=== PATIENT | male | born 1975 | race Caucasian/White ===

== ENCOUNTER 2023-11-18 10:24 | Inpatient (IN) | payer BC ==
[2023-11-18 10:54] VITALS: BMI 20.9
[2023-11-18] MEDS ORDERED: MAG HYDROX/AL HYDROX/SIMETH 30 ML UNIT-DOSE CUP PO PRN (11:07)
[2023-11-18] MEDS ORDERED: guaiFENesin 600 MG TABLET.ER (FP) PO PRN (11:07)
[2023-11-18] MEDS ORDERED: BENZONATATE 200 MG CAPSULE PO PRN (11:07)
[2023-11-18] MEDS ORDERED: P-EPHED 60MG/TRIPROLIDI 2.5MG TABLET PO PRN (11:07)
[2023-11-18] MEDS ORDERED: NALOXONE HCL 0.4 MG/ML VIAL IM PRN (11:07)
[2023-11-18] MEDS ORDERED: MAGNESIUM HYDROX 2400MG/30ML ORAL SUSPENSION 30 ML CUP PO PRN (11:07)
[2023-11-18] MEDS ORDERED: LOPERAMIDE HCL 2 MG CAPSULE PO PRN (11:07)
[2023-11-18] MEDS ORDERED: NALOXONE (NARCAN) HCL 4 MG/0.1 ML SPRAY NS PRN (11:07)
[2023-11-18] MEDS ORDERED: BENZOCAINE/MENTHOL (CHLORASEPTIC ) LOZENGE MM PRN (11:07)
[2023-11-18] MEDS ORDERED: POLYETHYLENE GLYCOL (HEALTHYLAX) 3350 17 GM PACKET PO PRN (11:07)
[2023-11-18] MEDS ORDERED: cloNIDine HCL 0.1 MG TABLET PO PRN (11:11)
[2023-11-18] MEDS ORDERED: methaDONE HCL 10 MG TABLET (FOR DETOX USE ONLY) ONE (12:18)
[2023-11-18] MEDS: methaDONE HCL 10 MG TABLET (FOR DETOX USE ONLY) PO ONE (12:21)
[2023-11-18] MEDS: CLOPIDOGREL BISULFATE 75 MG TABLET (FP) PO SCH (13:35)
[2023-11-18] MEDS: EMPAGLIFLOZIN (JARDIANCE) 25 MG TABLET PO SCH (13:36)
[2023-11-18] MEDS: FERROUS SO4 325 MG TABLET (FP) PO SCH (13:37)
[2023-11-18] MEDS: PANTOPRAZOLE 40 MG TABLET PO SCH (13:37)
[2023-11-18] MEDS: SACUBITRIL/VALSARTAN 24 MG-26 MG TABLET PO SCH (13:54)
[2023-11-18] MEDS: METHOCARBAMOL 500 MG TABLET PO PRN (15:46)
[2023-11-18] MEDS: INSULIN ASPART SLIDING SCALE (NOVOLOG) 1 VIAL SQ SCH (17:03)
[2023-11-18] MEDS: FUROSEMIDE 20 MG TABLET (FP) PO SCH (17:05)
[2023-11-18] MEDS: GABAPENTIN 400 MG CAPSULE PO SCH (17:06)
[2023-11-18] MEDS: THIAMINE 100 MG TABLET PO SCH (21:53)
[2023-11-18] MEDS: ATORVASTATIN CA 80 MG TABLET (FP) PO SCH (21:54)
[2023-11-18] MEDS: INSULIN (LEVEMIR) 100 UNITS/ML UNITS SQ SCH (21:57)
[2023-11-18] MEDS: MELATONIN 5 MG TABLETS PO SCH (21:59)
[2023-11-19] MEDS: GABAPENTIN 400 MG CAPSULE PO SCH (05:40)
[2023-11-19] MEDS: INSULIN ASPART SLIDING SCALE (NOVOLOG) 1 VIAL SQ SCH (06:12)
[2023-11-19] MEDS ORDERED: methaDONE HCL 10 MG TABLET (FOR DETOX USE ONLY) PO ONE (10:00)
[2023-11-19] MEDS: CHOLECALCIFEROL (VIT D3) 1,000 UNIT (25 MCG) TABLET PO SCH (10:35)
[2023-11-19] MEDS: PRENATAL VITAMINS W/ FOLIC ACID TABLET (FP) PO SCH (10:37)
[2023-11-19] MEDS: MAGNESIUM OXIDE 400 MG TABLET (FP) PO SCH (10:41)
[2023-11-20] MEDS: DICYCLOMINE HCL 10 MG CAPSULE PO PRN (01:48)
[2023-11-20] MEDS: methaDONE HCL 10 MG TABLET (FOR DETOX USE ONLY) PO ONE (10:49)
[2023-11-20] MEDS: ONDANSETRON *ODT* 4 MG TABLET SL PRN (17:52)
[2023-11-20] MEDS: ACETAMINOPHEN 325 MG TABLET (FP) PO PRN (18:57)
[2023-11-20] MEDS: cloNIDine HCL 0.1 MG TABLET PO PRN (19:54)
[2023-11-20] MEDS: hydrOXYzine PAMOATE 25 MG CAPSULE (FP) PO PRN (19:54)
[2023-11-21 06:44] VITALS: RESP 16
[2023-11-21 09:55] VITALS: BP 150/80; PULSE 59; TEMP 97.5
== END 2023-11-21 10:55 | disposition home or self-care (01) | DRG 773 ==
LOC: YASAS 10:24 → Y6N 12:54
PROVIDERS: ADMIT Allergy & Immunology; ATTEND Family Medicine Addiction Medicine
PROC: HZ2ZZZZ Detoxification Services for Substance Abuse Treatment (ICD-10-PCS; principal; 2023-11-18)
DX: F11.23 Opioid dependence with withdrawal (principal); F12.20 Cannabis dependence, uncomplicated; G62.9 Polyneuropathy, unspecified; I25.10 Atherosclerotic heart disease of native coronary artery without angina pectoris; I11.0 Hypertensive heart disease with heart failure; I50.9 Heart failure, unspecified; Z95.1 Presence of aortocoronary bypass graft; E78.5 Hyperlipidemia, unspecified; E11.9 Type 2 diabetes mellitus without complications; Z79.4 Long term (current) use of insulin; Z88.2 Allergy status to sulfonamides; Z79.84 Long term (current) use of oral hypoglycemic drugs
CPT/HCPCS: 80305; 80307; 82962; 93005; 93010; Q0162

== ENCOUNTER 2023-12-19 11:32 | Inpatient (IN) | payer BC ==
[2023-12-19 11:59] VITALS: BMI 21.2
[2023-12-19] MEDS ORDERED: BISMUTH SUBSALICYLATE 524 MG/30 ML PO PRN (12:18)
[2023-12-19] MEDS ORDERED: LOPERAMIDE HCL 2 MG CAPSULE PO PRN (12:18)
[2023-12-19] MEDS ORDERED: IBUPROFEN 600 MG TABLET (FP) PO PRN (12:18)
[2023-12-19] MEDS ORDERED: BENZOCAINE/MENTHOL (CHLORASEPTIC ) LOZENGE MM PRN (12:18)
[2023-12-19] MEDS ORDERED: NALOXONE (NARCAN) HCL 4 MG/0.1 ML SPRAY NS PRN (12:18)
[2023-12-19] MEDS ORDERED: MAGNESIUM HYDROX 2400MG/30ML ORAL SUSPENSION 30 ML CUP PO PRN (12:18)
[2023-12-19] MEDS ORDERED: BUPRENORPHINE HCL 150 MCG, BUPRENORPHINE HCL 75 MCG BC PRN (12:18)
[2023-12-19] MEDS ORDERED: ONDANSETRON *ODT* 4 MG TABLET SL PRN (12:18)
[2023-12-19] MEDS ORDERED: IBUPROFEN 400 MG TABLET (FP) PO PRN (12:18)
[2023-12-19] MEDS ORDERED: MAG HYDROX/AL HYDROX/SIMETH 30 ML UNIT-DOSE CUP PO PRN (12:18)
[2023-12-19] MEDS ORDERED: POLYETHYLENE GLYCOL (HEALTHYLAX) 3350 17 GM PACKET PO PRN (12:18)
[2023-12-19] MEDS ORDERED: NALOXONE (NYS OPIOID OVERDOSE PROGRAM) 4 MG/0.1 ML SPRAY NS PRN (12:18)
[2023-12-19] MEDS: SACUBITRIL/VALSARTAN 24 MG-26 MG TABLET PO SCH (13:36)
[2023-12-19] MEDS ORDERED: BUPRENORPHINE HCL 75 MCG FILM BC ONE (13:42)
[2023-12-19] MEDS ORDERED: BUPRENORPHINE HCL 150 MCG FILM BC ONE (13:42)
[2023-12-19] MEDS: BUPRENORPHINE HCL 150 MCG, BUPRENORPHINE HCL 75 MCG BC ONE (13:44)
[2023-12-19] MEDS: cloNIDine HCL 0.1 MG TABLET PO ONE (13:49)
[2023-12-19] MEDS: CLOPIDOGREL BISULFATE 75 MG TABLET (FP) PO SCH (14:43)
[2023-12-19] MEDS: FERROUS SO4 325 MG TABLET (FP) PO SCH (14:49)
[2023-12-19] MEDS: GABAPENTIN 400 MG CAPSULE PO SCH (14:49)
[2023-12-19] MEDS: INSULIN ASPART SLIDING SCALE (NOVOLOG) 1 VIAL SQ SCH (16:53)
[2023-12-19] MEDS: cloNIDine HCL 0.1 MG TABLET PO PRN (18:59)
[2023-12-19] MEDS: BENZONATATE 200 MG CAPSULE PO PRN (19:03)
[2023-12-19] MEDS: ACETAMINOPHEN 325 MG TABLET (FP) PO PRN (19:41)
[2023-12-19] MEDS: ATORVASTATIN CA 80 MG TABLET (FP) PO SCH (22:09)
[2023-12-19] MEDS: THIAMINE 100 MG TABLET PO SCH (22:09)
[2023-12-19] MEDS: PANTOPRAZOLE 40 MG TABLET PO SCH (22:09)
[2023-12-19] MEDS: MELATONIN 5 MG TABLETS PO SCH (22:11)
[2023-12-19] MEDS: INSULIN (LEVEMIR) 100 UNITS/ML UNITS SQ SCH (22:15)
[2023-12-19] MEDS: diazePAM 5 MG TABLET PO PRN (23:06)
[2023-12-20] MEDS ORDERED: BUPRENORPHINE HCL 150 MCG, BUPRENORPHINE HCL 75 MCG BC PRN
[2023-12-20] MEDS: guaiFENesin 600 MG TABLET.ER (FP) PO PRN (02:02)
[2023-12-20] MEDS: BUPRENORPHINE HCL 150 MCG, BUPRENORPHINE HCL 75 MCG BC SCH (05:50)
[2023-12-20] MEDS: PRENATAL VITAMINS W/ FOLIC ACID TABLET (FP) PO SCH (10:58)
[2023-12-20] MEDS: CHOLECALCIFEROL (VIT D3) 1,000 UNIT (25 MCG) TABLET PO SCH (11:00)
[2023-12-20 12:40] LABS: HEMATOCRIT 35.4 % (35.4-49); HEMOGLOBIN 10.9 GM/dL (11.7-16.9); MCH 22.2 pg (25.7-33.7); MCHC 30.8 g/dl (32.0-35.9); MEAN CELL VOLUME 71.9 fl (80-96); MEAN PLT VOLUME 8.8 fl (7.5-11.1); PLATELET COUNT 687 10^3/uL (134-434); RBC 4.93 M/mm3 (4.00-5.60); RDW 25.4 % (11.9-15.9); WHITE BLOOD COUNT 12.3 K/mm3 (4.0-10.0)
[2023-12-20 13:50] LABS: CHLORIDE 112 mmol/L (98-107); POTASSIUM 5.2 mmol/L (3.5-5.1); SODIUM 142 mmol/L (136-145)
[2023-12-20 13:55] LABS: ANION GAP 3 mmol/L (4-13); BLOOD UREA NITROGEN 31.3 mg/dL (7-18); CALCIUM 10.3 mg/dL (8.5-10.1); CO2 27 mmol/L (21-32); GLUCOSE,RANDOM 137 mg/dL (74-106)
[2023-12-20 13:57] LABS: CREATININE 1.1 mg/dL (0.55-1.3); SGOT/AST 22 U/L (15-37)
[2023-12-20 14:00] LABS: ALK PHOS 244 U/L (45-117); BILIRUBIN,TOTAL 0.4 mg/dL (0.2-1); SGPT/ALT 28 U/L (13-61); TOT PROT 6.3 g/dl (6.4-8.2)
[2023-12-20] MEDS ORDERED: INSULIN (NOVOLOG) ASPART 100 UNITS/ML 10ML VIAL ONE (16:46)
[2023-12-20] MEDS: hydrOXYzine PAMOATE 25 MG CAPSULE (FP) PO PRN (23:25)
[2023-12-21] MEDS: DICYCLOMINE HCL 10 MG CAPSULE PO PRN (02:08)
[2023-12-21] MEDS: BUPRENORPHINE HCL 450 MCG FILM BC SCH (05:44)
[2023-12-21 13:06] VITALS: PULSE 73; RESP 16
[2023-12-21] MEDS: ALBUTEROL SO4 0.083% IH SOL 2.5 MG/3 ML VIAL.NEB. NEB ONE (14:50)
[2023-12-21 15:02] LABS: HEMATOCRIT 38.2 % (35.4-49); HEMOGLOBIN 11.7 GM/dL (11.7-16.9); MCH 21.9 pg (25.7-33.7); MCHC 30.5 g/dl (32.0-35.9); MEAN CELL VOLUME 71.9 fl (80-96); MEAN PLT VOLUME 8.8 fl (7.5-11.1); PLATELET COUNT 778 10^3/uL (134-434); RBC 5.32 M/mm3 (4.00-5.60); RDW 25.3 % (11.9-15.9); WHITE BLOOD COUNT 11.5 K/mm3 (4.0-10.0)
[2023-12-21 15:03] LABS: ADD RBC MORPHOLOGY YES
[2023-12-21 15:26] LABS: ANISOCYTOSIS 3+; MACROCYTOSIS 0; TARGET CELLS 1+
[2023-12-21] MEDS: METHOCARBAMOL 500 MG TABLET PO PRN (15:34)
[2023-12-21 15:37] LABS: POTASSIUM 4.9 mmol/L (3.5-5.1)
[2023-12-21 15:42] LABS: CALCIUM 10.5 mg/dL (8.5-10.1)
[2023-12-21 15:47] LABS: BILIRUBIN,TOTAL 0.6 mg/dL (0.2-1); TOT PROT 6.1 g/dl (6.4-8.2)
[2023-12-21] MEDS ORDERED: INSULIN (NOVOLOG) ASPART 100 UNITS/ML 10ML VIAL ONE (17:15)
[2023-12-21 18:11] VITALS: BP 140/78; TEMP 97.9
[2023-12-22] MEDS ORDERED: BUPRENORPHINE/NALOXONE 4 MG/1 MG FILM PACKET SL SCH (06:00)
[2023-12-23] MEDS ORDERED: BUPRENORPHINE/NALOXONE 8 MG/2 MG FILM PACKET SL ONE (06:00)
== END 2023-12-21 23:59 | disposition short-term general hospital (02) | DRG 773 ==
LOC: YASAS 11:32 → Y6N 12:58
PROVIDERS: ADMIT Allergy & Immunology; ATTEND Surgery
PROC: HZ2ZZZZ Detoxification Services for Substance Abuse Treatment (ICD-10-PCS; principal; 2023-12-19)
DX: F11.23 Opioid dependence with withdrawal (principal); G62.9 Polyneuropathy, unspecified; I25.10 Atherosclerotic heart disease of native coronary artery without angina pectoris; I11.0 Hypertensive heart disease with heart failure; Z95.1 Presence of aortocoronary bypass graft; E78.5 Hyperlipidemia, unspecified; E11.9 Type 2 diabetes mellitus without complications; Z79.84 Long term (current) use of oral hypoglycemic drugs; Z85.71 Personal history of Hodgkin lymphoma; Z88.2 Allergy status to sulfonamides
CPT/HCPCS: 0241U-QW; 36415; 71046-TC-FY; 80053; 80305; 80307; 82962; 83036; 85025; 85027; 86780; 93005; 93010

== ENCOUNTER 2023-12-21 20:07 | Inpatient (IN) | payer BC ==
[2023-12-21 20:13] VITALS: BMI 20.7
[2023-12-21] MEDS ORDERED: CEFTRIAXONE 1 GM/50 ML BAG ONE (21:53)
[2023-12-21] MEDS: CEFTRIAXONE 1 GM in DEXTROSE 5%-WATER - 100 ML IVPB ONE (22:05)
[2023-12-21 22:13] LABS: HEMATOCRIT 41.6 % (35.4-49); HEMOGLOBIN 13.2 GM/dL (11.7-16.9); MCH 22.5 pg (25.7-33.7); MCHC 31.8 g/dl (32.0-35.9); MEAN CELL VOLUME 70.9 fl (80-96); MEAN PLT VOLUME 8.9 fl (7.5-11.1); PLATELET COUNT 882 10^3/uL (134-434); RBC 5.87 M/mm3 (4.00-5.60); RDW 25.9 % (11.9-15.9); WHITE BLOOD COUNT 13.5 K/mm3 (4.0-10.0)
[2023-12-21 22:19] LABS: ADD RBC MORPHOLOGY YES
[2023-12-21 22:30] LABS: POTASSIUM 5.3 mmol/L (3.5-5.1)
[2023-12-21 22:32] LABS: ALBUMIN 3.1 g/dl (3.4-5.0); CALCIUM 10.4 mg/dL (8.5-10.1)
[2023-12-21 22:33] LABS: BLOOD UREA NITROGEN 28.3 mg/dL (7-18)
[2023-12-21] MEDS ORDERED: AZITHROMYCIN IVPB 500 MG/250 ML BAG IVPB ONE (22:34)
[2023-12-21 22:36] LABS: CREATININE 1.2 mg/dL (0.55-1.3)
[2023-12-21 22:37] LABS: BILIRUBIN,TOTAL 0.7 mg/dL (0.2-1); TOT PROT 6.8 g/dl (6.4-8.2)
[2023-12-21] MEDS: AZITHROMYCIN IVPB 500 MG in DEXTROSE 5%-WATER - 250 ML IVPB ONE (22:42)
[2023-12-21 23:10] LABS: ANISOCYTOSIS 3+; MACROCYTOSIS 2+; TARGET CELLS 2+
[2023-12-21] MEDS ORDERED: ONDANSETRON 4 MG/2 ML VIAL ONE (23:25)
[2023-12-21] MEDS: ONDANSETRON 4 MG/2 ML VIAL IVPUSH ONE (23:37)
[2023-12-22] MEDS ORDERED: ACETAMINOPHEN INJECTION 100 ML ONE (02:22)
[2023-12-22] MEDS: GABAPENTIN 400 MG CAPSULE PO SCH ×2 (02:29→08:11)
[2023-12-22] MEDS: ACETAMINOPHEN 1000 MG/100 ML BAG IVPB ONE (02:29)
[2023-12-22 07:41] LABS: HEMATOCRIT 40.5 % (35.4-49); HEMOGLOBIN 12.6 GM/dL (11.7-16.9); MCH 22.3 pg (25.7-33.7); PLATELET COUNT 787 10^3/uL (134-434); RBC 5.63 M/mm3 (4.00-5.60); RDW 25.7 % (11.9-15.9); WHITE BLOOD COUNT 14.3 K/mm3 (4.0-10.0)
[2023-12-22] MEDS ORDERED: FUROSEMIDE 20 MG TABLET (FP) ONE (07:52)
[2023-12-22] MEDS ORDERED: GABAPENTIN 400 MG CAPSULE ONE ×3 (07:53→17:50)
[2023-12-22] MEDS ORDERED: BUPRENORPHINE/NALOXONE 2 MG/0.5 MG FILM PACKET SL SCH (07:55)
[2023-12-22] MEDS ORDERED: ONDANSETRON 4 MG/2 ML VIAL IVPUSH PRN (07:57)
[2023-12-22] MEDS ORDERED: BUPRENORPHINE/NALOXONE 2 MG/0.5 MG FILM PACKET ONE ×2 (07:59→17:51)
[2023-12-22 08:08] LABS: POTASSIUM 5.3 mmol/L (3.5-5.1)
[2023-12-22] MEDS: FUROSEMIDE 20 MG TABLET (FP) PO SCH (08:11)
[2023-12-22] MEDS: BUPRENORPHINE/NALOXONE 2 MG/0.5 MG FILM PACKET SL SCH (08:12)
[2023-12-22 08:22] LABS: BLOOD UREA NITROGEN 34.3 mg/dL (7-18); CALCIUM 10.5 mg/dL (8.5-10.1)
[2023-12-22 08:23] LABS: MAGNESIUM 1.8 mg/dL (1.8-2.4)
[2023-12-22 08:26] LABS: CREATININE 1.5 mg/dL (0.55-1.3); PHOSPHOROUS 4.1 mg/dL (2.5-4.9)
[2023-12-22] MEDS: INSULIN (LEVEMIR) 100 UNITS/ML UNITS SQ SCH (09:19)
[2023-12-22] MEDS: BUPRENORPHINE/NALOXONE 4 MG/1 MG FILM PACKET SL SCH (09:20)
[2023-12-22] MEDS ORDERED: SACUBITRIL/VALSARTAN 24 MG-26 MG TABLET ONE (09:25)
[2023-12-22] MEDS ORDERED: PANTOPRAZOLE 40 MG TABLET PO ONE (09:26)
[2023-12-22] MEDS ORDERED: CLOPIDOGREL BISULFATE 75 MG TABLET (FP) ONE (09:26)
[2023-12-22 09:29] LABS: EPI CELLS 3 /uL (0-25.1); HYALINE CASTS 2 /uL (0-3.1); URINE APPEARANCE CLEAR; URINE BACTERIA 3 /uL (0-1359); URINE BILIRUBIN NEGATIVE (NEGATIVE); URINE COLOR DK YELLOW; URINE GLUCOSE (UA) NEGATIVE (NEGATIVE); URINE KETONE TRACE (NEGATIVE); URINE LEUK ESTERASE NEGATIVE (NEGATIVE); URINE NITRITE NEGATIVE (NEGATIVE); URINE PROTEIN 2+ (NEGATIVE); URINE RBC 24 /uL (0-23.9); URINE UROBILINOGEN 0.2 mg/dL (0.2-1.0); URINE WBC 13 /uL (0-25.8)
[2023-12-22] MEDS: SACUBITRIL/VALSARTAN 24 MG-26 MG TABLET PO SCH (09:57)
[2023-12-22] MEDS: PANTOPRAZOLE 40 MG TABLET PO SCH (09:57)
[2023-12-22] MEDS: CLOPIDOGREL BISULFATE 75 MG TABLET (FP) PO SCH (09:57)
[2023-12-22] MEDS: ENOXAPARIN NA (PORCINE) 40 MG/0.4 ML DISP.SYRIN SQ SCH (10:00)
[2023-12-22] MEDS ORDERED: ACETAMINOPHEN 325 MG TABLET (FP) ONE (11:32)
[2023-12-22] MEDS: ACETAMINOPHEN 325 MG TABLET (FP) PO PRN (11:37)
[2023-12-22 13:31] LABS: HIV INTERPRETATION NEGATIVE (NEGATIVE)
[2023-12-22] MEDS ORDERED: FUROSEMIDE 40 MG/4 ML INJECTABLE VIAL ONE (14:24)
[2023-12-22] MEDS: FUROSEMIDE 40 MG/4 ML INJECTABLE VIAL IVPUSH ONE (14:36)
[2023-12-22] MEDS: INSULIN ASPART SLIDING SCALE (NOVOLOG) 1 VIAL SQ SCH ×2 (18:01→19:46)
[2023-12-22] MEDS ORDERED: cefTRIAXone SODIUM 1 GM VIAL ONE (22:56)
[2023-12-22] MEDS ORDERED: AZITHROMYCIN IVPB 500 MG/250 ML BAG IVPB ONE (22:57)
[2023-12-22] MEDS: CEFTRIAXONE 1 GM in DEXTROSE 5%-WATER - 50 ML IVPB SCH (23:39)
[2023-12-22] MEDS: ATORVASTATIN CA 80 MG TABLET (FP) PO SCH (23:40)
[2023-12-23] MEDS: AZITHROMYCIN IVPB 500 MG/250 ML BAG IVPB SCH (00:49)
[2023-12-23] MEDS: FUROSEMIDE 40 MG/4 ML INJECTABLE VIAL IVPUSH ONE (03:46)
[2023-12-23] MEDS: FUROSEMIDE 40 MG/4 ML INJECTABLE VIAL IVPUSH SCH (06:06)
[2023-12-23] MEDS: BUPRENORPHINE/NALOXONE 8 MG/2 MG FILM PACKET SL ONE (06:14)
[2023-12-23 12:01] LABS: BASO % 0.8 % (0-2.0); EOS % 0.1 % (0-4.5); HEMATOCRIT 42.3 % (35.4-49); HEMOGLOBIN 13.7 GM/dL (11.7-16.9); LYMPH % 12.6 % (8-40); MCH 22.9 pg (25.7-33.7); MCHC 32.3 g/dl (32.0-35.9); MEAN CELL VOLUME 70.7 fl (80-96); MEAN PLT VOLUME 8.5 fl (7.5-11.1); MONO % 14.8 % (3.8-10.2); NEUT % 71.7 % (42.8-82.8); PLATELET COUNT 776 10^3/uL (134-434); RBC 5.98 M/mm3 (4.00-5.60); RDW 25.2 % (11.9-15.9); WHITE BLOOD COUNT 11.4 K/mm3 (4.0-10.0)
[2023-12-23 12:17] LABS: POTASSIUM 4.9 mmol/L (3.5-5.1)
[2023-12-23 12:21] LABS: BLOOD UREA NITROGEN 44.5 mg/dL (7-18); CALCIUM 10.1 mg/dL (8.5-10.1)
[2023-12-23 12:25] LABS: CREATININE 1.7 mg/dL (0.55-1.3)
[2023-12-23] MEDS: FERROUS SO4 325 MG TABLET (FP) PO SCH (14:41)
[2023-12-24 09:18] LABS: BASO % 0.8 % (0-2.0); EOS % 0.9 % (0-4.5); HEMATOCRIT 42.8 % (35.4-49); HEMOGLOBIN 13.8 GM/dL (11.7-16.9); LYMPH % 23.1 % (8-40); MCH 22.9 pg (25.7-33.7); MCHC 32.3 g/dl (32.0-35.9); MEAN CELL VOLUME 70.7 fl (80-96); MEAN PLT VOLUME 8.7 fl (7.5-11.1); MONO % 16.9 % (3.8-10.2); NEUT % 58.3 % (42.8-82.8); PLATELET COUNT 844 10^3/uL (134-434); RBC 6.06 M/mm3 (4.00-5.60); RDW 26.3 % (11.9-15.9); WHITE BLOOD COUNT 10.3 K/mm3 (4.0-10.0)
[2023-12-24] MEDS ORDERED: BUPRENORPHINE/NALOXONE 8 MG/2 MG FILM PACKET SL SCH (10:00)
[2023-12-24] MEDS: BUPRENORPHINE/NALOXONE 8 MG/2 MG FILM PACKET SL SCH (10:37)
[2023-12-24 10:48] LABS: POTASSIUM 4.5 mmol/L (3.5-5.1)
[2023-12-24 10:56] LABS: BLOOD UREA NITROGEN 36.4 mg/dL (7-18); CALCIUM 10.5 mg/dL (8.5-10.1); MAGNESIUM 1.8 mg/dL (1.8-2.4)
[2023-12-24 11:00] LABS: CREATININE 1.4 mg/dL (0.55-1.3); PHOSPHOROUS 3.3 mg/dL (2.5-4.9)
[2023-12-24] MEDS: FUROSEMIDE 20 MG TABLET (FP) PO SCH (13:39)
[2023-12-25 07:04] VITALS: BP 144/89; PULSE 69; RESP 19; TEMP 97.5
[2023-12-25 09:56] LABS: HEMOGLOBIN 13.4 GM/dL (11.7-16.9); MCH 23.1 pg (25.7-33.7); MCHC 32.8 g/dl (32.0-35.9); MEAN CELL VOLUME 70.5 fl (80-96); MEAN PLT VOLUME 8.7 fl (7.5-11.1); PLATELET COUNT 812 10^3/uL (134-434); RBC 5.81 M/mm3 (4.00-5.60); RDW 25.7 % (11.9-15.9)
[2023-12-25 10:12] LABS: POTASSIUM 4.7 mmol/L (3.5-5.1)
[2023-12-25 10:18] LABS: CALCIUM 9.9 mg/dL (8.5-10.1)
[2023-12-25 10:19] LABS: BLOOD UREA NITROGEN 31.7 mg/dL (7-18)
[2023-12-25 10:22] LABS: CREATININE 1.2 mg/dL (0.55-1.3)
== END 2023-12-25 16:20 | disposition home or self-care (01) | DRG 139 ==
LOC: JER 20:07 → JERBED 21:57 → J5S 12-22 23:13
PROVIDERS: ADMIT Internal Medicine; ATTEND Internal Medicine
DX: J18.9 Pneumonia, unspecified organism (principal); E78.5 Hyperlipidemia, unspecified; F11.20 Opioid dependence, uncomplicated; E83.52 Hypercalcemia; D75.839 Thrombocytosis, unspecified; D72.829 Elevated white blood cell count, unspecified; I11.0 Hypertensive heart disease with heart failure; I25.5 Ischemic cardiomyopathy; I50.23 Acute on chronic systolic (congestive) heart failure; I25.10 Atherosclerotic heart disease of native coronary artery without angina pectoris; J98.11 Atelectasis; E11.40 Type 2 diabetes mellitus with diabetic neuropathy, unspecified; Z95.1 Presence of aortocoronary bypass graft
CPT/HCPCS: 0241U-QW; 36415; 71045-TC-FY; 71250-TC; 80048; 80053; 81003; 81257; 82306; 82728; 82962; 83010; 83540; 83550; 83735; 83880; 83970; 84100; 84466; 84484; 85025; 85027; 86803; 87077; 87081; 87086; 87389; 87899; 93005; 93010; 93306-TC; 99285-25; J0131

== ENCOUNTER 2024-01-11 13:59 | Inpatient (IN) | payer BC ==
[2024-01-11 16:01] VITALS: BMI 20.2
[2024-01-11] MEDS ORDERED: cloNIDine HCL 0.1 MG TABLET PO PRN (18:27)
[2024-01-11] MEDS ORDERED: MAG HYDROX/AL HYDROX/SIMETH 30 ML UNIT-DOSE CUP PO PRN (18:33)
[2024-01-11] MEDS ORDERED: MAGNESIUM HYDROX 2400MG/30ML ORAL SUSPENSION 30 ML CUP PO PRN (18:33)
[2024-01-11] MEDS ORDERED: ACETAMINOPHEN 325 MG TABLET (FP) PO PRN (18:33)
[2024-01-11] MEDS ORDERED: guaiFENesin 600 MG TABLET.ER (FP) PO PRN (18:33)
[2024-01-11] MEDS ORDERED: ONDANSETRON *ODT* 4 MG TABLET SL PRN (18:33)
[2024-01-11] MEDS ORDERED: BENZOCAINE/MENTHOL (CHLORASEPTIC ) LOZENGE MM PRN (18:33)
[2024-01-11] MEDS ORDERED: NALOXONE (NARCAN) HCL 4 MG/0.1 ML SPRAY NS PRN (18:33)
[2024-01-11] MEDS ORDERED: POLYETHYLENE GLYCOL (HEALTHYLAX) 3350 17 GM PACKET PO PRN (18:33)
[2024-01-11] MEDS ORDERED: DICYCLOMINE HCL 10 MG CAPSULE PO PRN (18:33)
[2024-01-11] MEDS ORDERED: P-EPHED 60MG/TRIPROLIDI 2.5MG TABLET PO PRN (18:33)
[2024-01-11] MEDS ORDERED: LOPERAMIDE HCL 2 MG CAPSULE PO PRN (18:33)
[2024-01-11] MEDS ORDERED: BENZONATATE 200 MG CAPSULE PO PRN (18:33)
[2024-01-11] MEDS ORDERED: methaDONE HCL 10 MG TABLET (FOR DETOX USE ONLY) ONE (19:06)
[2024-01-11] MEDS ORDERED: GABAPENTIN 100 MG CAPSULE ONE (19:06)
[2024-01-11] MEDS: methaDONE HCL 10 MG TABLET (FOR DETOX USE ONLY) PO ONE (19:11)
[2024-01-11] MEDS: GABAPENTIN 400 MG CAPSULE PO SCH (19:11)
[2024-01-11] MEDS: PANTOPRAZOLE 20 MG TABLET PO SCH (22:25)
[2024-01-11] MEDS: THIAMINE 100 MG TABLET PO SCH (22:25)
[2024-01-11] MEDS: SACUBITRIL/VALSARTAN 24 MG-26 MG TABLET PO SCH (22:25)
[2024-01-11] MEDS: MELATONIN 5 MG TABLETS PO SCH (22:25)
[2024-01-11] MEDS: ATORVASTATIN CA 80 MG TABLET (FP) PO SCH (22:25)
[2024-01-11] MEDS: METHOCARBAMOL 500 MG TABLET PO PRN (22:25)
[2024-01-11] MEDS: INSULIN ASPART SLIDING SCALE (NOVOLOG) 1 VIAL SQ SCH (22:32)
[2024-01-12] MEDS: FUROSEMIDE 20 MG TABLET (FP) PO SCH (05:40)
[2024-01-12] MEDS: sitaGLIPtin PHOSPHATE 50 MG TABLET PO SCH (07:53)
[2024-01-12] MEDS: INSULIN (LEVEMIR) 100 UNITS/ML UNITS SQ SCH (07:54)
[2024-01-12] MEDS: PRENATAL VITAMINS W/ FOLIC ACID TABLET (FP) PO SCH (10:41)
[2024-01-12] MEDS: cloNIDine HCL 0.1 MG TABLET PO SCH (10:42)
[2024-01-12] MEDS: EMPAGLIFLOZIN (JARDIANCE) 25 MG TABLET PO SCH (10:42)
[2024-01-12] MEDS: CLOPIDOGREL BISULFATE 75 MG TABLET (FP) PO SCH (10:42)
[2024-01-12] MEDS: CHOLECALCIFEROL (VIT D3) 1,000 UNIT (25 MCG) TABLET PO SCH (10:42)
[2024-01-12] MEDS: methaDONE HCL 10 MG TABLET PO ONE (10:43)
[2024-01-12] MEDS: MAGNESIUM OXIDE 400 MG TABLET (FP) PO SCH (10:43)
[2024-01-12] MEDS ORDERED: INSULIN (NOVOLOG) ASPART 100 UNITS/ML 10ML VIAL ONE (11:03)
[2024-01-12 12:51] LABS: ALBUMIN 3.6 g/dl (3.4-5.0); BLOOD UREA NITROGEN 23.8 mg/dL (7-18); CALCIUM 10.4 mg/dL (8.5-10.1); POTASSIUM 4.4 mmol/L (3.5-5.1)
[2024-01-12 12:54] LABS: CREATININE 1.2 mg/dL (0.55-1.3); PHOSPHOROUS 2.8 mg/dL (2.5-4.9)
[2024-01-12] MEDS: FERROUS SO4 325 MG TABLET (FP) PO SCH (14:00)
[2024-01-12] MEDS: methaDONE HCL 10 MG TABLET PO PRN (19:56)
[2024-01-13] MEDS: methaDONE 40 MG, methaDONE 10 MG PO ONE (09:55)
[2024-01-13] MEDS ORDERED: methaDONE HCL 10 MG TABLET (FOR DETOX USE ONLY) PO ONE (10:00)
[2024-01-14] MEDS ORDERED: cloNIDine HCL 0.1 MG TABLET PO PRN
[2024-01-14] MEDS: methaDONE 40 MG, methaDONE 20 MG PO ONE (10:12)
[2024-01-15] MEDS ORDERED: methaDONE HCL 10 MG TABLET (FOR DETOX USE ONLY) PO ONE (10:00)
[2024-01-15] MEDS: methaDONE 40 MG, methaDONE 30 MG PO ONE (10:02)
[2024-01-16] MEDS: methaDONE HCL 40 MG DISPERSABLE TABLET PO ONE (10:31)
[2024-01-16] MEDS: NALOXONE (NYS OPIOID OVERDOSE PROGRAM) 4 MG/0.1 ML SPRAY NS PRN (13:00)
[2024-01-16 13:01] VITALS: BP 148/76; PULSE 78; RESP 18; TEMP 97.7
[2024-01-17] MEDS ORDERED: methaDONE 80 MG, methaDONE 10 MG PO ONE (10:00)
== END 2024-01-16 13:06 | disposition other institution (70) | DRG 773 ==
LOC: YASAS 13:59 → Y6N 18:37
PROVIDERS: ADMIT Allergy & Immunology; ATTEND Psychiatry & Neurology Pain Medicine
PROC: HZ2ZZZZ Detoxification Services for Substance Abuse Treatment (ICD-10-PCS; principal; 2024-01-11)
DX: F11.23 Opioid dependence with withdrawal (principal); F10.230 Alcohol dependence with withdrawal, uncomplicated; G62.9 Polyneuropathy, unspecified; I25.10 Atherosclerotic heart disease of native coronary artery without angina pectoris; I10 Essential (primary) hypertension; E78.5 Hyperlipidemia, unspecified; E11.9 Type 2 diabetes mellitus without complications; Z79.84 Long term (current) use of oral hypoglycemic drugs; Z95.1 Presence of aortocoronary bypass graft
CPT/HCPCS: 36415; 80069; 80305; 80307; 82962; 83880; 87811

== ENCOUNTER 2024-01-27 17:05 | Inpatient (IN) | payer BC, OTHER ==
[2024-01-27 18:35] LABS: CHLORIDE 107 mmol/L (98-107); POTASSIUM 4.5 mmol/L (3.5-5.1); SODIUM 139 mmol/L (136-145)
[2024-01-27 18:38] LABS: ANION GAP 7 mmol/L (4-13); BLOOD UREA NITROGEN 36.4 mg/dL (7-18); CO2 26 mmol/L (21-32); GLUCOSE,RANDOM 87 mg/dL (74-106)
[2024-01-27 18:38] LABS: INR 1.13 (0.83-1.09)
[2024-01-27 18:41] LABS: CREATININE 1.7 mg/dL (0.55-1.3); SGOT/AST 178 U/L (15-37); SGPT/ALT 299 U/L (13-61)
[2024-01-27 18:43] LABS: BILIRUBIN,TOTAL 0.8 mg/dL (0.2-1); TOT PROT 7.4 g/dl (6.4-8.2)
[2024-01-27 18:46] LABS: N-TERMINAL BNP 22849.1 pg/ml (5-125)
[2024-01-27 18:53] LABS: ALK PHOS 992 U/L (45-117)
[2024-01-27 19:20] LABS: BASO % 0.6 % (0-2.0); EOS % 0.6 % (0-4.5); HEMATOCRIT 44.8 % (35.4-49); HEMOGLOBIN 13.6 GM/dL (11.7-16.9); MCH 22.6 pg (25.7-33.7); MCHC 30.3 g/dl (32.0-35.9); MEAN CELL VOLUME 74.5 fl (80-96); RBC 6.01 M/mm3 (4.00-5.60); RDW 28.4 % (11.9-15.9); WHITE BLOOD COUNT 7.5 K/mm3 (4.0-10.0)
[2024-01-27 19:26] LABS: LYMPH % 10.3 % (8-40); MEAN PLT VOLUME 9.4 fl (7.5-11.1); MONO % 18.9 % (3.8-10.2); NEUT % 69.6 % (42.8-82.8); PLATELET COUNT 556 10^3/uL (134-434)
[2024-01-27 19:36] LABS: EPI CELLS 10 /uL (0-25.1); HYALINE CASTS 0 /uL (0-3.1); PH,URINE 5.5 (5.0-8.0); URINE APPEARANCE CLEAR; URINE BACTERIA 9 /uL (0-1359); URINE BILIRUBIN NEGATIVE (NEGATIVE); URINE COLOR YELLOW; URINE GLUCOSE (UA) 3+ (NEGATIVE); URINE KETONE NEGATIVE (NEGATIVE); URINE LEUK ESTERASE NEGATIVE (NEGATIVE); URINE NITRITE NEGATIVE (NEGATIVE); URINE PROTEIN 1+ (NEGATIVE); URINE RBC 10 /uL (0-23.9); URINE UROBILINOGEN 0.2 mg/dL (0.2-1.0); URINE WBC 16 /uL (0-25.8)
[2024-01-27] MEDS ORDERED: FUROSEMIDE 40 MG/4 ML INJECTABLE VIAL ONE (20:15)
[2024-01-27] MEDS: FUROSEMIDE 40 MG/4 ML INJECTABLE VIAL IVPUSH ONE (20:24)
[2024-01-27 20:44] LABS: ANISOCYTOSIS 3+; MACROCYTOSIS 1+; OVALOCYTE 1+; TARGET CELLS 2+
[2024-01-27] MEDS ORDERED: cloNIDine HCL 0.1 MG TABLET PO PRN ×2 (22:00→22:03)
[2024-01-27] MEDS: HEPARIN NA (PORCINE) 5,000 UNITS/ML 1ML VIAL SQ SCH (22:14)
[2024-01-27] MEDS: INSULIN ASPART SLIDING SCALE (NOVOLOG) 1 VIAL SQ SCH (22:15)
[2024-01-27] MEDS: methaDONE HCL 10 MG TABLET (FOR DETOX USE ONLY) PO ONE (22:16)
[2024-01-28] MEDS: FUROSEMIDE 40 MG/4 ML INJECTABLE VIAL IVPUSH SCH (06:16)
[2024-01-28 07:19] LABS: HEMOGLOBIN 12.6 GM/dL (11.7-16.9); MCH 22.8 pg (25.7-33.7); MCHC 30.8 g/dl (32.0-35.9); MEAN PLT VOLUME 9.5 fl (7.5-11.1); PLATELET COUNT 555 10^3/uL (134-434); RBC 5.54 M/mm3 (4.00-5.60); RDW 27.3 % (11.9-15.9); WHITE BLOOD COUNT 7.2 K/mm3 (4.0-10.0)
[2024-01-28 07:27] LABS: INR 1.18 (0.83-1.09); PROTHROMBIN TIME (PATIENT) 13.5 SEC (9.7-13.0)
[2024-01-28 07:28] LABS: POTASSIUM 3.7 mmol/L (3.5-5.1)
[2024-01-28 07:31] LABS: CALCIUM 9.5 mg/dL (8.5-10.1)
[2024-01-28 07:32] LABS: BLOOD UREA NITROGEN 32.3 mg/dL (7-18)
[2024-01-28 07:33] LABS: ALBUMIN 2.6 g/dl (3.4-5.0)
[2024-01-28 07:35] LABS: CREATININE 1.7 mg/dL (0.55-1.3); PHOSPHOROUS 3.4 mg/dL (2.5-4.9)
[2024-01-28 07:36] LABS: BILIRUBIN,DIRECT 0.5 mg/dL (0.0-0.2)
[2024-01-28 07:38] LABS: BILIRUBIN,TOTAL 0.6 mg/dL (0.2-1); TOT PROT 6.4 g/dl (6.4-8.2)
[2024-01-28 09:36] LABS: ANISOCYTOSIS 2+; MACROCYTOSIS 0; OVALOCYTE 1+; TARGET CELLS 2+; TEAR DROP CELLS 1+
[2024-01-28] MEDS: CLOPIDOGREL BISULFATE 75 MG TABLET (FP) PO SCH (09:38)
[2024-01-28] MEDS: SACUBITRIL/VALSARTAN 24 MG-26 MG TABLET PO SCH (09:38)
[2024-01-28] MEDS: PANTOPRAZOLE 40 MG TABLET PO SCH (09:38)
[2024-01-28] MEDS: methaDONE HCL 10 MG TABLET PO ONE (09:40)
[2024-01-28] MEDS: CHOLECALCIFEROL (VIT D3) 1,000 UNIT (25 MCG) TABLET PO SCH (11:01)
[2024-01-29 06:57] LABS: HEMATOCRIT 41.5 % (35.4-49); HEMOGLOBIN 12.8 GM/dL (11.7-16.9); MCH 22.8 pg (25.7-33.7); MCHC 30.8 g/dl (32.0-35.9); MEAN PLT VOLUME 9.6 fl (7.5-11.1); PLATELET COUNT 586 10^3/uL (134-434); RBC 5.62 M/mm3 (4.00-5.60); RDW 28.3 % (11.9-15.9); WHITE BLOOD COUNT 8.3 K/mm3 (4.0-10.0)
[2024-01-29 07:21] LABS: BLOOD UREA NITROGEN 34.8 mg/dL (7-18); CALCIUM 9.5 mg/dL (8.5-10.1); MAGNESIUM 1.8 mg/dL (1.8-2.4)
[2024-01-29 07:22] LABS: CHOLESTEROL 113 mg/dL (50-200)
[2024-01-29 07:23] LABS: ALBUMIN 2.6 g/dl (3.4-5.0); BILIRUBIN,DIRECT 0.6 mg/dL (0.0-0.2); HDL CHOLESTEROL 39 mg/dL (40-60); LDL CHOLESTEROL (ONLY SJRH) 67 mg/dL (5-100)
[2024-01-29 07:26] LABS: CREATININE 1.5 mg/dL (0.55-1.3); PHOSPHOROUS 2.6 mg/dL (2.5-4.9)
[2024-01-29 07:27] LABS: TOT PROT 6.4 g/dl (6.4-8.2)
[2024-01-29 07:29] LABS: IRON SERUM 30 ug/dL (50-175)
[2024-01-29 07:30] LABS: TOTAL IRON BINDING CAPACITY 409 ug/dL (250-450)
[2024-01-29] MEDS: FUROSEMIDE 40 MG/4 ML INJECTABLE VIAL IVPUSH SCH ×2 (09:22→09:33)
[2024-01-29] MEDS: methaDONE HCL 10 MG TABLET PO ONE (09:31)
[2024-01-29] MEDS ORDERED: methaDONE HCL 10 MG TABLET (FOR DETOX USE ONLY) PO ONE (10:00)
[2024-01-30 07:36] LABS: HEMATOCRIT 44.5 % (35.4-49); HEMOGLOBIN 13.9 GM/dL (11.7-16.9); MCH 22.8 pg (25.7-33.7); MCHC 31.1 g/dl (32.0-35.9); MEAN CELL VOLUME 73.3 fl (80-96); MEAN PLT VOLUME 9.4 fl (7.5-11.1); PLATELET COUNT 655 10^3/uL (134-434); RBC 6.07 M/mm3 (4.00-5.60); RDW 27.7 % (11.9-15.9); WHITE BLOOD COUNT 7.3 K/mm3 (4.0-10.0)
[2024-01-30 07:46] LABS: POTASSIUM 3.8 mmol/L (3.5-5.1)
[2024-01-30 07:50] LABS: ALBUMIN 2.9 g/dl (3.4-5.0); BLOOD UREA NITROGEN 32.6 mg/dL (7-18); CALCIUM 9.9 mg/dL (8.5-10.1)
[2024-01-30 07:54] LABS: CREATININE 1.5 mg/dL (0.55-1.3)
[2024-01-30 07:55] LABS: BILIRUBIN,TOTAL 1.1 mg/dL (0.2-1); TOT PROT 6.9 g/dl (6.4-8.2)
[2024-01-30] MEDS: methaDONE HCL 10 MG TABLET PO ONE (09:12)
[2024-01-30] MEDS: IRON SUCROSE INJECTION 200 MG in SODIUM CHLORIDE 100 ML IVPB ONE (17:25)
[2024-01-31 07:14] LABS: HEMATOCRIT 43.2 % (35.4-49); HEMOGLOBIN 13.2 GM/dL (11.7-16.9); MCH 22.8 pg (25.7-33.7); MCHC 30.5 g/dl (32.0-35.9); MEAN CELL VOLUME 74.7 fl (80-96); MEAN PLT VOLUME 8.4 fl (7.5-11.1); PLATELET COUNT 574 10^3/uL (134-434); RBC 5.77 M/mm3 (4.00-5.60); RDW 27.9 % (11.9-15.9); WHITE BLOOD COUNT 6.8 K/mm3 (4.0-10.0)
[2024-01-31 07:31] LABS: POTASSIUM 3.1 mmol/L (3.5-5.1)
[2024-01-31 07:33] LABS: ALBUMIN 2.9 g/dl (3.4-5.0); BLOOD UREA NITROGEN 29.7 mg/dL (7-18); CALCIUM 9.6 mg/dL (8.5-10.1)
[2024-01-31 07:36] LABS: CREATININE 1.2 mg/dL (0.55-1.3)
[2024-01-31 07:38] LABS: TOT PROT 6.9 g/dl (6.4-8.2)
[2024-01-31] MEDS: CHOLECALCIFEROL (VIT D3) 1,000 UNIT (25 MCG) TABLET PO SCH (09:50)
[2024-01-31] MEDS: CLOPIDOGREL BISULFATE 75 MG TABLET (FP) PO SCH (09:50)
[2024-01-31] MEDS: PANTOPRAZOLE 40 MG TABLET PO SCH (09:50)
[2024-01-31] MEDS: FUROSEMIDE 40 MG/4 ML INJECTABLE VIAL IVPUSH SCH (09:50)
[2024-01-31] MEDS ORDERED: methaDONE HCL 10 MG TABLET (FOR DETOX USE ONLY) PO ONE (10:00)
[2024-01-31] MEDS: POTASSIUM CHLORIDE ORAL LIQUID 20 MEQ/15 ML PO ONE (10:55)
[2024-01-31] MEDS: INSULIN ASPART SLIDING SCALE (NOVOLOG) 1 VIAL SQ SCH (11:50)
[2024-01-31] MEDS: HEPARIN NA (PORCINE) 5,000 UNITS/ML 1ML VIAL SQ SCH (15:04)
[2024-01-31] MEDS: IRON SUCROSE INJECTION 200 MG in SODIUM CHLORIDE 100 ML IVPB ONE (15:56)
[2024-02-01] MEDS: MELATONIN 5 MG TABLETS PO ONE (00:51)
[2024-02-01] MEDS: GABAPENTIN 400 MG CAPSULE PO ONE (00:51)
[2024-02-01 09:01] LABS: POTASSIUM 3.6 mmol/L (3.5-5.1)
[2024-02-01 09:10] LABS: ALBUMIN 2.7 g/dl (3.4-5.0); BLOOD UREA NITROGEN 27.2 mg/dL (7-18); CALCIUM 9.6 mg/dL (8.5-10.1)
[2024-02-01 09:11] LABS: MAGNESIUM 1.8 mg/dL (1.8-2.4)
[2024-02-01 09:14] LABS: CREATININE 1.1 mg/dL (0.55-1.3); TOT PROT 6.3 g/dl (6.4-8.2)
[2024-02-01 09:15] LABS: BILIRUBIN,TOTAL 0.8 mg/dL (0.2-1)
[2024-02-01 09:36] LABS: HEMATOCRIT 39.1 % (35.4-49); HEMOGLOBIN 12.2 GM/dL (11.7-16.9); MCH 22.7 pg (25.7-33.7); MCHC 31.3 g/dl (32.0-35.9); MEAN CELL VOLUME 72.7 fl (80-96); PLATELET COUNT 557 10^3/uL (134-434); RBC 5.38 M/mm3 (4.00-5.60); RDW 26.5 % (11.9-15.9); WHITE BLOOD COUNT 6.2 K/mm3 (4.0-10.0)
[2024-02-01] MEDS ORDERED: methaDONE HCL 10 MG TABLET PO ONE (10:00)
[2024-02-01] MEDS ORDERED: FUROSEMIDE 40 MG TABLET (FP) PO SCH (10:00)
[2024-02-01] MEDS: methaDONE HCL 10 MG TABLET PO ONE (10:06)
[2024-02-01] MEDS: FUROSEMIDE 40 MG TABLET (FP) PO SCH (10:11)
[2024-02-01 11:14] LABS: ANISOCYTOSIS 2+; MACROCYTOSIS 0; TARGET CELLS 1+
[2024-02-01] MEDS: EMPAGLIFLOZIN (JARDIANCE) 25 MG TABLET PO SCH (11:26)
[2024-02-01 14:38] VITALS: BMI 17.1
[2024-02-01] MEDS: GABAPENTIN 400 MG CAPSULE PO SCH (21:36)
[2024-02-01] MEDS: MELATONIN 5 MG TABLETS PO SCH (21:37)
[2024-02-02] MEDS: EMPAGLIFLOZIN (JARDIANCE) 25 MG TABLET PO SCH (06:32)
[2024-02-02 06:47] LABS: POTASSIUM 4.1 mmol/L (3.5-5.1)
[2024-02-02 06:52] LABS: ALBUMIN 2.7 g/dl (3.4-5.0); CALCIUM 10.1 mg/dL (8.5-10.1); MAGNESIUM 2.1 mg/dL (1.8-2.4)
[2024-02-02 06:56] LABS: CREATININE 1.2 mg/dL (0.55-1.3)
[2024-02-02 06:58] LABS: BILIRUBIN,TOTAL 0.8 mg/dL (0.2-1); TOT PROT 6.4 g/dl (6.4-8.2)
[2024-02-02 07:27] LABS: HEMATOCRIT 40.2 % (35.4-49); HEMOGLOBIN 12.3 GM/dL (11.7-16.9); MCH 22.7 pg (25.7-33.7); MCHC 30.7 g/dl (32.0-35.9); MEAN CELL VOLUME 74.1 fl (80-96); MEAN PLT VOLUME 8.8 fl (7.5-11.1); PLATELET COUNT 574 10^3/uL (134-434); RBC 5.43 M/mm3 (4.00-5.60); RDW 27.6 % (11.9-15.9); WHITE BLOOD COUNT 6.2 K/mm3 (4.0-10.0)
[2024-02-02 09:17] LABS: ANISOCYTOSIS 2+; MACROCYTOSIS 1+; TARGET CELLS 1+
[2024-02-02] MEDS ORDERED: BUPRENORPHINE/NALOXONE 4 MG/1 MG FILM PACKET SL SCH (10:00)
[2024-02-02] MEDS: BUPRENORPHINE/NALOXONE 2 MG/0.5 MG FILM PACKET SL SCH (10:05)
[2024-02-03 05:35] VITALS: BP 132/79; PULSE 62; RESP 18; TEMP 97.3
[2024-02-03 08:36] LABS: POTASSIUM 4.3 mmol/L (3.5-5.1)
[2024-02-03 08:48] LABS: ALBUMIN 2.8 g/dl (3.4-5.0); CALCIUM 10.4 mg/dL (8.5-10.1); MAGNESIUM 2.1 mg/dL (1.8-2.4)
[2024-02-03 08:52] LABS: BILIRUBIN,TOTAL 0.8 mg/dL (0.2-1); CREATININE 1.1 mg/dL (0.55-1.3); TOT PROT 6.6 g/dl (6.4-8.2)
[2024-02-03 08:56] LABS: HEMATOCRIT 40.6 % (35.4-49); HEMOGLOBIN 12.4 GM/dL (11.7-16.9); MCH 22.9 pg (25.7-33.7); MCHC 30.7 g/dl (32.0-35.9); MEAN CELL VOLUME 74.5 fl (80-96); MEAN PLT VOLUME 8.8 fl (7.5-11.1); PLATELET COUNT 558 10^3/uL (134-434); RBC 5.44 M/mm3 (4.00-5.60); RDW 27.7 % (11.9-15.9); WHITE BLOOD COUNT 7.6 K/mm3 (4.0-10.0)
[2024-02-03 09:41] LABS: ANISOCYTOSIS 2+; MACROCYTOSIS 1+; TARGET CELLS 1+
[2024-02-03] MEDS: BUPRENORPHINE/NALOXONE 8 MG/2 MG FILM PACKET SL ONE (10:31)
== END 2024-02-03 11:14 | disposition home or self-care (01) | DRG 194 ==
LOC: JER 17:05 → JERBED 20:36 → J4S 21:26 → OBSVTOIN 01-30 11:41 → J7W 01-31 00:11
PROVIDERS: ADMIT Student in an Organized Health Care Education/Training Program; ATTEND Nurse Practitioner Acute Care
DX: I13.0 Hypertensive heart and chronic kidney disease with heart failure and stage 1 through stage 4 chronic kidney disease, or unspecified chronic kidney disease (principal); N17.9 Acute kidney failure, unspecified; E46 Unspecified protein-calorie malnutrition; C81.90 Hodgkin lymphoma, unspecified, unspecified site; F11.20 Opioid dependence, uncomplicated; E11.9 Type 2 diabetes mellitus without complications; E78.5 Hyperlipidemia, unspecified; F19.10 Other psychoactive substance abuse, uncomplicated; I25.10 Atherosclerotic heart disease of native coronary artery without angina pectoris; I50.23 Acute on chronic systolic (congestive) heart failure; N18.9 Chronic kidney disease, unspecified; R74.01 Elevation of levels of liver transaminase levels; Z68.1 Body mass index [BMI] 19.9 or less, adult
CPT/HCPCS: 36415; 71045-TC-FY; 74183-TC; 76705-TC; 80048; 80053; 80061; 80076; 81003; 82140; 82436; 82570; 82962; 82977; 83516; 83540; 83550; 83735; 83880; 83935; 84080; 84100; 84133; 84156; 84300; 84484; 84540; 85025; 85027; 85610; 85730; 86038; 86708; 86709; 93005; 93010; 99283-25; G0378; J1644; J1756